=== PATIENT | male | born 1980 | race Caucasian/White ===

== ENCOUNTER 2021-02-18 09:30 | Outpatient (REF) | payer OTHER, SELFPAY ==
[2021-02-18 10:03] LABS: MANUAL DIFF FLAG NO
[2021-02-18 10:06] LABS: Basophils Percent Auto 0.6 % (0-2); Eosinophils Absolute Auto 0.1 X10*3/uL (0.0-0.4); Eosinophils Percent Auto 2.8 % (0-4); Hematocrit 42.1 % (42-52); Hemoglobin 14.2 g/dl (14.0-18.0); Imm Gran Abs Auto 0.01 X10*3/uL (0.00-0.03); Imm Gran Pct Auto 0.2 % (0.0-0.4); Lymphocytes Absolute Auto 1.7 X10*3/uL (1.2-4.9); Lymphocytes Percent Auto 36.2 % (20-40); Mean Corpuscular HGB Conc 33.7 g/dl (31.0-36.0); Mean Corpuscular Hemoglobin 28.9 pg (27.0-33.0); Mean Corpuscular Volume 85.7 fL (80-98); Mean Platelet Volume 10.6 fL (9.4-12.4); Monocytes Absolute Auto 0.4 X10*3/uL (0.1-1.2); Monocytes Percent Auto 7.9 % (2-11); Neutrophils Absolute Auto 2.5 X10*3/uL (2.0-8.3); Neutrophils Percent Auto 52.3 % (45-73); Platelet Count 252 X10*3/uL (160-400); Red Blood Count 4.91 X10*6/uL (4.60-5.80); Red Cell Distribution Width 13.4 % (11.0-16.0); White Blood Count 4.7 X10*3/uL (4.8-10.8)
[2021-02-18 10:28] LABS: Alanine Aminotransferase 47 U/L (0-40); Albumin Level 4.3 g/dL (3.5-5.0); Alkaline Phosphatase 70 U/L (39-117); Anion Gap 11 (12-20); Aspartate Amino Transferase 30 U/L (5-37); Bilirubin Total 0.6 mg/dL (0.0-1.0); Calcium 9.3 mg/dL (8.4-10.2); Carbon Dioxide 27 mmol/L (22-29); Chloride 107 mmol/L (96-108); Cholesterol 191 mg/dL; Estimated Glomerular Filt Rate > 60; Glucose Fasting 106 mg/dL (60-99); HDL Cholesterol 45 mg/dL; LDL Cholesterol Calculated 118 mg/dl; Potassium 4.7 mmol/L (3.3-5.1); Sodium 140 mmol/L (135-145); Total Protein 7.1 g/dL (6.5-8.0); Triglycerides 141 mg/dL
[2021-02-18 10:34] LABS: Blood Urea Nitrogen 15 mg/dL (9-16)
[2021-02-18 10:48] LABS: Thyroid Stimulating Hormone 1.47 uIU/mL (0.32-4.0)
== END 2021-02-18 09:31 | disposition home or self-care (01) ==
LOC: HO.LAB 09:30
PROVIDERS: PCP Internal Medicine; Visit Provider Internal Medicine
DX: Z00.00 Encounter for general adult medical examination without abnormal findings (principal); E03.9 Hypothyroidism, unspecified; E11.9 Type 2 diabetes mellitus without complications
CPT/HCPCS: 36415; 80053; 80061; 84443; 85025

== ENCOUNTER 2022-02-22 09:31 | Outpatient (REF) | payer OTHER, SELFPAY ==
[2022-02-22 09:40] LABS: MANUAL DIFF FLAG NO
[2022-02-22 10:04] LABS: Basophils Absolute Auto 0.1 X10*3/uL (0.0-0.2); Basophils Percent Auto 0.7 % (0-2); Eosinophils Absolute Auto 0.1 X10*3/uL (0.0-0.4); Eosinophils Percent Auto 2.1 % (0-4); Hematocrit 44.8 % (42.0-52.0); Hemoglobin 14.8 g/dl (14.0-18.0); Imm Gran Abs Auto 0.03 X10*3/uL (0.00-0.03); Imm Gran Pct Auto 0.4 % (0.0-0.4); Lymphocytes Percent Auto 29.8 % (20-40); Mean Corpuscular Hemoglobin 28.3 pg (27.0-33.0); Mean Corpuscular Volume 85.7 fL (80.0-98.0); Mean Platelet Volume 10.5 fL (9.4-12.4); Monocytes Absolute Auto 0.5 X10*3/uL (0.1-1.2); Monocytes Percent Auto 7.8 % (2-11); Neutrophils Percent Auto 59.2 % (45-73); Platelet Count 254 X10*3/uL (160-400); Red Blood Count 5.23 X10*6/uL (4.60-5.80); Red Cell Distribution Width 13.3 % (11.0-16.0); White Blood Count 6.7 X10*3/uL (4.8-10.8)
[2022-02-22 10:25] LABS: Alanine Aminotransferase 41 U/L (0-40); Albumin Level 4.4 g/dL (3.5-5.0); Alkaline Phosphatase 60 U/L (39-117); Anion Gap 14 (12-20); Aspartate Amino Transferase 23 U/L (5-37); Bilirubin Total 0.4 mg/dL (0.0-1.0); Blood Urea Nitrogen 17 mg/dL (9-16); Calcium 9.4 mg/dL (8.4-10.2); Carbon Dioxide 27 mmol/L (22-29); Chloride 104 mmol/L (96-108); Cholesterol 226 mg/dL; Estimated Glomerular Filt Rate > 60; Glucose Fasting 96 mg/dL (60-99); HDL Cholesterol 54 mg/dL; LDL Cholesterol Calculated 140 mg/dl; Potassium 4.7 mmol/L (3.3-5.1); Sodium 140 mmol/L (135-145); Total Protein 7.5 g/dL (6.5-8.0); Triglycerides 164 mg/dL
== END 2022-02-22 09:32 | disposition home or self-care (01) ==
LOC: HO.LAB 09:31
PROVIDERS: PCP Internal Medicine; Visit Provider Internal Medicine
DX: Z13.0 Encounter for screening for diseases of the blood and blood-forming organs and certain disorders involving the immune mechanism (principal); E78.5 Hyperlipidemia, unspecified; I10 Essential (primary) hypertension
CPT/HCPCS: 36415; 80053; 80061; 85025

== ENCOUNTER 2023-02-23 08:50 | Outpatient (AMB) | payer OTHER, SELFPAY ==
[2023-02-23 08:51] VITALS: BP 120/72; PULSE 47; O2SAT 98; BMI 38.8
--- NOTE | 2023-02-23 08:51 | A.OFFPC_ITS ---
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 Required: No Physics Technical Officer: Not Required per policy Accompanied by: Self / Same As Patient Allergies No Known Allergies Allergy (Verified 02/23/23 08:52) Medication List - Last Reconciled 02/23/23 by Bonilla Robertson MD atorvastatin 20 mg PO BEDTIME 90 days ketoconazole 200 mg PO DAILY Tobacco use date assessed: 02/18/21 Dental Screening Dental Screen Date: 02/23/23 Did you have a dental visit in the last 12 months?: Yes Did you have a dental problem in the last 6 months where you did not have access to dental care?: No Was dental information given to patient?: Patient has dentist HPI Annual Exam HPI Details hyperlipidemia on rx; doing well PFSH Medical History Hyperlipidemia Obesity Surgical History History of removal of cyst Family History Father Medical history unknown Mother Medical history unknown Social History Housing: House Patient Tobacco Use Status: Never used Tobacco e-Cigarette/Vaping Use: Never Used Second Hand Smoke Exposure: No service: No Current occupational status: employed Cognitive needs: No Hearing needs: No Vision needs: No Questionnaire Thrive Questionnaire Date Thrive assessed: 02/23/23 I am a: Patient What is your living situation today?: I have a steady place to live Within the past 12 months, did the food you bought not last and you didn't have the money to get more?: Never true Within the past 12 months, did you worry whether your food would run out before you got money to buy more?: Never true Do you have trouble paying for medicines?: No Do you have trouble getting transportation to medical appointments?: No Do you have trouble paying your heating and electricity bill?: No Do you have trouble taking care of your child, family member or friend?: No Do you have trouble with day-to-day activities such as bathing, preparing meals, shopping, managing finances, etc.?: No Are you currently unemployed and looking for a job?: No Are you interested in more education?: No Please select the resources that you would like help with: None Currently or been in a relationship where the following occur: no concerns reported AUDIT C Alcohol Use Questionnaire (AUDIT-C) 1. How often do you have a drink containing alcohol?: 2-3 times a week 2. How many drinks containing alcohol do you have on a typical day when you are drinking?: 3 or 4 3. How often do you have six or more drinks on one occasion?: Never Total Score: 4 Score Reviewed/Action Taken: Yes XANDER-7 AMB Questionnaire XANDER-7 Date XANDER - 7 assessed: 02/23/23 Feeling nervous, anxious, or on edge: 0 = Not at all Not being able to stop or control worryin = Not at all Worrying too much about different things: 0 = Not at all Trouble relaxin = Not at all Being so restless that it is hard to sit still: 0 = Not at all Becoming easily annoyed or irritable: 0 = Not at all Feeling afraid as if something awful might happen: 0 = Not at all Total XANDER-7 score (0-4 normal; 5-9 mild; 10-14 moderate; 15-21 severe): 0 Source: Developed by Drs. Anshul Dutton, Heather Jimenez, Uche Hickey and colleagues, with an educational reji from [employer]. Review of Systems Const Denies chills, Denies fatigue, Denies headache(s) and Denies weight loss Eyes Denies change in vision, Denies diplopia and Denies eye pain ENT Denies vertigo, Denies dizziness, Denies headache(s) and Denies nasal discharge Card Denies chest pain, Denies rapid heart rate and Denies dyspnea on exertion Resp Denies chest congestion, Denies cough, Denies pain with cough and Denies dyspnea on exertion GI Denies abdominal pain, Denies hematochezia and Denies change in bowel habits Musc Denies myalgias, Denies arthralgias and Denies joint swelling Skin/Breast Denies lesions and Denies unusual bruising Neuro Denies vertigo, Denies dizziness, Denies headache(s) and Denies focal weakness Endo Denies fatigue Physical exam (Primary Care) Vital Signs: Last Vital Signs Pulse 47 L 02/23/23 08:51 BP 120/72 02/23/23 08:51 Pulse Ox 98 02/23/23 08:51 Oxygen Delivery Method Room Air 02/23/23 08:51 BMI result Body Mass Index 38.8 obesity BMI Assessment/Plan discussion: High BMI High, discussed plan: lifestyle, weight reduction, dietary and physical activity Tobacco/Smoking Status: Tobacco use Status Tobacco use date assessed 02/18/21 02/23/23 08:57 Patient Tobacco Use Status Never used Tobacco 02/23/23 08:57 e-Cigarette/Vaping Use Never Used 02/23/23 08:57 Thrive Assessment: Date of Thrive Assessment Date Thrive assessed 02/23/23 02/23/23 08:57 Currently or been in a relationship where the following occur: no concerns reported Const General: cooperative, healthy appearing and no acute distress Orientation/consciousness: oriented to person, oriented to place and oriented to time HENMT Head: Yes normal to inspection, Yes normocephalic and Yes atraumatic Mouth: Normal oral and palatal mucosa present and tongue normal Throat: Yes posterior oropharynx normal and Yes uvula midline Eyes General: appearance normal, both eyes and all related structures Neck Neck: Yes normal visual inspection, Yes full ROM and Yes no lymphadenopathy Thyroid: Thyroid normal Carotids: normal carotid upstroke Chest Chest palpation & inspection: normal inspection of the chest Resp Effort & Inspection: normal respiratory effort and able to speak in complete sentences Auscultation: clear to auscultation bilaterally Cardio Jugular venous distension: no JVD Palpation: normal PMI Rate: regular rate Rhythm: regular rhythm Heart sounds: S1 normal heart sound present and S2 normal heart sound present GI Inspection: Yes normal to inspection Palpation (GI): Soft to palpation and No hepatosplenomegaly present Auscultation: normal bowel sounds General: Yes no CVA tenderness Back/Spine/Pelvis Back: no CVA tenderness Skin General skin exam: no rashes or lesions noted Neuro General: oriented to person, oriented to place and oriented to time Extrem General: Yes normal to inspection and Yes full ROM Assessment and Plan Assessment & Plan (1) Physical exam: Code(s): Z00.00 - Encounter for general adult medical examination without abnormal findings Plan: do labs (2) Obesity: Code(s): E66.9 - Obesity, unspecified Plan: as above (3) Hyperlipidemia: Code(s): E78.5 - Hyperlipidemia, unspecified Plan: same rx Orders: Orders Complete Blood Count Auto Diff Today D64.9 - Anemia, unspecified Comprehensive Spring. Panel Fast Today N28.9 - Disorder of kidney and ureter, unspecified Lipid Panel Today E78.5 - Hyperlipidemia, unspecified Referrals Gastroenterology Referral Z12.11 - Encounter for screening for malignant neoplasm of colon Medications: Refilled atorvastatin 20 mg PO BEDTIME 90 tabs 8RF 90 days Coding Level of Care Code Est Pt Prev Care 40-64y(80596) Diagnoses Physical exam Z00.00 Obesity E66.9 Hyperlipidemia E78.5
== END 2023-02-23 09:16 | disposition home or self-care (01) ==
PROVIDERS: PCP Internal Medicine; Visit Provider Internal Medicine
DX: Z00.00 Encounter for general adult medical examination without abnormal findings (principal); E66.9 Obesity, unspecified; Z68.38 Body mass index [BMI] 38.0-38.9, adult; E78.5 Hyperlipidemia, unspecified
CPT/HCPCS: 99396

== ENCOUNTER 2023-02-23 09:25 | Outpatient (REF) | payer OTHER, SELFPAY ==
[2023-02-23 09:38] LABS: MANUAL DIFF FLAG NO
[2023-02-23 09:47] LABS: Basophils Percent Auto 0.7 % (0-2); Eosinophils Absolute Auto 0.1 X10*3/uL (0.0-0.4); Hematocrit 41.7 % (42.0-52.0); Hemoglobin 13.9 g/dl (14.0-18.0); Imm Gran Abs Auto 0.01 X10*3/uL (0.00-0.03); Imm Gran Pct Auto 0.2 % (0.0-0.4); Lymphocytes Absolute Auto 2.2 X10*3/uL (1.2-4.9); Mean Corpuscular HGB Conc 33.3 g/dl (31.0-36.0); Mean Corpuscular Volume 87.1 fL (80.0-98.0); Mean Platelet Volume 10.1 fL (9.4-12.4); Monocytes Absolute Auto 0.5 X10*3/uL (0.1-1.2); Monocytes Percent Auto 8.8 % (2-11); Neutrophils Absolute Auto 2.7 x10*3/uL (2.0-8.3); Neutrophils Percent Auto 49.3 % (45-73); Platelet Count 231 X10*3/uL (160-400); Red Blood Count 4.79 X10*6/uL (4.60-5.80); Red Cell Distribution Width 13.2 % (11.0-16.0); White Blood Count 5.5 X10*3/uL (4.8-10.8)
[2023-02-23 10:27] LABS: Alanine Aminotransferase 32 U/L (0-40); Albumin Level 4.2 g/dL (3.5-5.0); Alkaline Phosphatase 56 U/L (39-117); Anion Gap 12 (12-20); Aspartate Amino Transferase 29 U/L (5-37); Bilirubin Total 0.5 mg/dL (0.0-1.0); Blood Urea Nitrogen 21 mg/dL (9-16); Calcium 9.3 mg/dL (8.4-10.2); Carbon Dioxide 26 mmol/L (22-29); Chloride 105 mmol/L (96-108); Cholesterol 211 mg/dL (<200); Estimated Glomerular Filt Rate > 60; Glucose Fasting 98 mg/dL (60-99); HDL Cholesterol 49 mg/dL (>40); LDL Cholesterol Calculated 141 mg/dL (<100); Potassium 4.3 mmol/L (3.3-5.1); Sodium 139 mmol/L (135-145); Total Protein 7.3 g/dL (6.5-8.0); Triglycerides 107 mg/dL (<150)
== END 2023-02-23 09:26 | disposition home or self-care (01) ==
LOC: HO.LAB 09:25
PROVIDERS: PCP Internal Medicine; Visit Provider Internal Medicine
DX: D64.9 Anemia, unspecified (principal); N28.9 Disorder of kidney and ureter, unspecified; E78.5 Hyperlipidemia, unspecified
CPT/HCPCS: 36415; 80053; 80061; 85025

== ENCOUNTER 2023-11-06 10:00 | Day surgery (SDC) | payer OTHER, SELFPAY ==
[2023-11-02 11:39] VITALS: BMI 39.8
--- NOTE | 2023-11-03 10:31 | HO.ANESPROP2 ---
Documented by User: Erin Lombardo NP 11/03/23 10:32 HPI - Anesthesia Eval Consult details Narrative: 43yo M for Upper Endoscopy and Colonoscopy PMFSH Active Problems Active Problems: All Active Problems Physical exam (Acute) Hyperlipidemia (Acute) Obesity (Acute) Past Medical History Medical History Hyperlipidemia Obesity Family History Family History Father Medical history unknown Mother Medical history unknown Surgical History Surgical History (Updated 11/02/23 @ 11:37 by Neeta Maza, BRYNN) History of vasectomy History of removal of cyst Social History Social History (Updated 11/02/23 @ 11:38 by Neeta Maza, BRYNN) Housing: House Patient Tobacco Use Status: Never used Tobacco e-Cigarette/Vaping Use: Never Used Second Hand Smoke Exposure: No Use of substances other than those prescribed or required for medical reasons: No Are you DNR?: No Advance Directives: No Advance Directives Information Provided: Yes service: No Current occupational status: employed Current occupation: [employer] Cognitive needs: No Hearing needs: No Vision needs: No Meds Allergies Allergy/AdvReac Type Severity Reaction Status Date / Time No Known Allergies Allergy Verified 02/23/23 08:52 Exam Height,Weight and Vital Signs: Height 5 ft 10 in Weight 125.872 kg Assessment and Plan Assessment Anesthesia Assessment: Chart Reviewed Documented by User: Ranulfo Dey MD 11/06/23 12:39 PMFSH Past Medical History Medical History Hyperlipidemia Obesity Family History Family History Father Medical history unknown Mother Medical history unknown Family history of problems with anesthesia: No Surgical History Surgical History (Updated 11/02/23 @ 11:37 by Neeta Maza RN) History of vasectomy History of removal of cyst History of Problems with Anesthesia: No Social History Social History (Updated 11/02/23 @ 11:38 by Neeta Maza RN) Housing: House Patient Tobacco Use Status: Never used Tobacco e-Cigarette/Vaping Use: Never Used Second Hand Smoke Exposure: No Use of substances other than those prescribed or required for medical reasons: No Are you DNR?: No Advance Directives: No Advance Directives Information Provided: Yes service: No Current occupational status: employed Current occupation: [employer] Cognitive needs: No Hearing needs: No Vision needs: No Meds Allergies Allergy/AdvReac Type Severity Reaction Status Date / Time No Known Allergies Allergy Verified 02/23/23 08:52 Exam Airway Mallampati Class: II TM Dist: <=3cm Neck ROM: Full Loose/Missing/Broken Teeth: No Heart: ok Lungs: ok Assessment and Plan Assessment Anesthesia Assessment: Anesthesia Plan Discussed Final Anesthetic Review Family History of Problems with Anesthesia: No History of Problems with Anesthesia: No NPO: Yes ASA Class: III Final Preanesthetic Review: No Changes in Pt Med Stat, Meds/Allgs Chart Reviewed, Consent Obtained/Reviewed and Anes Risks/Benef Reviewed Patient Risk: Intermediate Procedure Risk: Intermediate Anesthetic Plan Anesthetic Plan: Agree w/ Assess. and Plan and TIVA Disposition: Standard PACU
[2023-11-06 10:18] VITALS: BP 142/80; PULSE 70; RESP 16; TEMP 36.4; O2SAT 98; BMI 39.9
[2023-11-06] MEDS: Lactated Ringers 1,000 ML 100 ML IVCONT (10:28)
[2023-11-06 13:07] VITALS: BP 143/86; PULSE 86; RESP 18; TEMP 37; O2SAT 94
--- NOTE | 2023-11-06 13:11 | P.BOP_ITS ---
Brief Operative Note Date of Service: 11/06/23 Pre-op diagnosis: GERD, Screening Post-op diagnosis: other (Hiatal hernia, Rectal polyp) Procedure: EGD with biopsies, Colonoscopy to the cecum and TI with bx/removal of polyp Surgeon: Anshul Draper MD Anesthesia: MAC Was an Impregnating Machine Operator used for this Procedure?: No Estimated blood loss (mL): 2.0 Pathology: other (A. EG Junction at 39cm B. Rectal polyp) Condition: stable Disposition: PACU
[2023-11-06 13:22] VITALS: BP 140/79; PULSE 64; RESP 18; TEMP 37; O2SAT 96
--- NOTE | 2023-11-06 13:56 | OP_ITS ---
DATE OF SERVICE: 11/06/2023 SURGEON: Anshul Draper MD INDICATIONS: The patient presents for evaluation of gastroesophageal reflux and colorectal cancer screening. Full consent has been obtained from him for this, including risks of bleeding and perforation. PREOPERATIVE DIAGNOSIS: POSTOPERATIVE DIAGNOSIS: PROCEDURE PERFORMED: Esophagogastroduodenoscopy with biopsies, and colonoscopy to cecum and terminal ileum with biopsy and removal of polyp. ESTIMATED BLOOD LOSS: COMPLICATIONS: ANESTHESIA: Monitored anesthesia care. ASSISTANTS: SPECIMENS: PREOPERATIVE DIAGNOSES: Gastroesophageal reflux and colorectal cancer screening. POSTOPERATIVE DIAGNOSES: Gastroesophageal reflux, colorectal cancer screening, small hiatal hernia, small rectal polyp, mild sigmoid diverticulosis, small internal hemorrhoids. DESCRIPTION OF PROCEDURE: The patient was placed in the left lateral decubitus position. The Olympus video gastroscope was passed in the posterior oropharynx and upper esophagus under direct vision. The scope was passed slowly to the distal esophagus. The gastroesophageal junction appeared at 39 cm. There was some very minimal irregularity, but no evidence of esophagitis nor any definitive evidence of [place] mucosa. There was a small hiatal hernia. The scope was advanced to pylorus and the duodenum was cannulated to the descending portion. The duodenum including the bulb appeared normal without mass or ulceration. The scope was withdrawn back in the stomach. The gastric antrum and body appeared normal with good peristalsis. The scope was retroflexed visualizing the proximal stomach carefully, which appeared normal, without any sign of mass or ulceration. The scope was straightened and withdrawn back to the esophagus. The biopsies were obtained at the EG junction at 39 cm. Proximal to that, the esophageal mucosa appeared normal. The scope was withdrawn from the patient. He was turned around for the colonoscopy. The digital rectal exam revealed no abnormalities. The Olympus video pediatric colonoscope was then entered into the rectum and advanced easily to the cecum. Once in the cecum, I did identify normal-appearing cecal pouch with appendiceal orifice and a normal-appearing ileocecal valve. The terminal ileum was cannulated and appeared normal. The scope withdrawn back in the colon. The entire cecum and ileocecal valve appeared normal. The scope was then slowly withdrawn assessing all mucosal surfaces carefully. Preparation was excellent. I did not visualize any sign of colitis nor angiodysplasia. There was a mild amount of sigmoid diverticulosis. The only polyp I visualized was a small, approximately 3 or 4 mm probable hyperplastic polyp in the rectum, which was biopsied and completely removed with the cold biopsy forceps. In the rectum, scope was retroflexed, visualizing small internal hemorrhoids, but no other pathology. The rectal mucosa appeared normal. The scope was straightened and withdrawn from the patient. He tolerated the procedures well and was returned to the recovery area in stable condition. IMPRESSION: 1. Small hiatal hernia, minimal changes of reflux. 2. Small rectal polyp. 3. Diverticulosis. 4. Internal hemorrhoids. PLAN: The results of the biopsy will be checked. If the rectal polyp is only hyperplastic, I would recommend a followup colonoscopy in 10 years. If it happens to be adenomatous, I would then recommend a followup colonoscopy in 5 years. At this point, he is not taking any medication on a regular basis for reflux and given today's basically negative exam, I do not think we need any medication for that unless his symptoms were to increase. At this point, he will see me on a p.r.n. basis. MD FAISAL Lainez/YAIMA / [id number]
== END 2023-11-06 13:45 | disposition home or self-care (01) ==
PROVIDERS: PCP Internal Medicine; Visit Provider Internal Medicine
PROC: (CPT 45380; principal; 2023-11-06 11:40)
DX: Z12.11 Encounter for screening for malignant neoplasm of colon (principal); K62.1 Rectal polyp; K57.30 Diverticulosis of large intestine without perforation or abscess without bleeding; K64.8 Other hemorrhoids; K21.9 Gastro-esophageal reflux disease without esophagitis; K44.9 Diaphragmatic hernia without obstruction or gangrene
CPT/HCPCS: 45380; 43239; 88305; 88313; J2704; J3010

== ENCOUNTER 2024-02-27 08:46 | Outpatient (AMB) | payer OTHER, SELFPAY ==
[2024-02-27 08:48] VITALS: BP 140/82; PULSE 64; O2SAT 94; BMI 38.4
--- NOTE | 2024-02-27 08:48 | A.OFFPC_ITS ---
Vital Signs 02/27/24 08:48 Height 5 ft 10 in Weight 268 lb BMI 38.4 BP 140/82 H Blood Pressure Location Lt brachial Position Sitting Pulse 64 Pulse Source Pulse Oximeter Pulse Oximetry (%) 94 Oxygen Delivery Method Room Air Intake Visit Reasons: Annual Exam Utilization Review Coordinator Required: No Accompanied by: Self / Same As Patient Allergies No Known Allergies Allergy (Verified 02/27/24 08:49) Medication List - Last Reconciled 02/27/24 by Bonilla Robertson MD atorvastatin 20 mg PO BEDTIME 90 days ketoconazole 200 mg PO DAILY Tobacco use date assessed: 02/27/24 Dental Screening Dental Screen Date: 02/27/24 Did you have a dental visit in the last 12 months?: Yes Did you have a dental problem in the last 6 months where you did not have access to dental care?: No Was dental information given to patient?: Patient has dentist HPI Annual Exam HPI Details hyperlipidemia on rx; doing well PFSH Medical History Hyperlipidemia Obesity Surgical History (Updated 11/02/23 @ 11:37 by Neeta Maza RN) History of vasectomy History of removal of cyst Family History Father Medical history unknown Mother Medical history unknown Social History (Updated 11/02/23 @ 11:38 by Neeta Maza RN) Housing: House Patient Tobacco Use Status: Never used Tobacco Tobacco use type: Cigarette e-Cigarette/Vaping Use: Never Used Second Hand Smoke Exposure: No service: No Current occupational status: employed Current occupation: [employer] Cognitive needs: No Hearing needs: No Vision needs: No Questionnaire PHQ-9 Over the last 2 weeks, how often have you been bothered by any of the following problems? 1. Little interest or pleasure in doing things: not at all 2. Feeling down, depressed, or hopeless: not at all 3. Trouble falling or staying asleep, or sleeping too much: not at all 4. Feeling tired or having little energy: not at all 5. Poor appetite or overeating: not at all 6. Feeling bad about yourself - or that you are a failure or have let yourself or your family down: not at all 7. Trouble concentrating on things, such as reading the newspaper or watching television: not at all 8. Moving or speaking so slowly that other people could have noticed. Or the opposite - being so fidgety or restless that you have been moving around a lot more than usual: not at all 9. Thoughts that you would be better off or of hurting yourself in some way: not at all Total score: 0 Depression Screening Interpretation: Negative Depression Screening Done: Yes 00112 - PHQ-9 Billing: Yes Source: Developed by Drs. Anshul Dutton, Heather Jimenez, Uche Hickey and colleagues, with an educational reji from [employer]. Thrive Questionnaire Date Thrive assessed: 02/20/24 I am a: Patient What is your living situation today?: I choose not to answer this question Within the past 12 months, did the food you bought not last and you didn't have the money to get more?: I choose not to answer this question Within the past 12 months, did you worry whether your food would run out before you got money to buy more?: I choose not to answer this question Do you have trouble paying for medicines?: I choose not to answer this question Do you have trouble getting transportation to medical appointments?: No Do you have trouble paying your heating and electricity bill?: I choose not to answer this question Do you have trouble taking care of your child, family member or friend?: I choose not to answer this question Do you have trouble with day-to-day activities such as bathing, preparing meals, shopping, managing finances, etc.?: I choose not to answer this question Are you currently unemployed and looking for a job?: I choose not to answer this question Are you interested in more education?: I choose not to answer this question Please select the resources that you would like help with: None Currently or been in a relationship where the following occur: I choose not to answer THRIVE Score: 0 AUDIT C Alcohol Use Questionnaire (AUDIT-C) 1. How often do you have a drink containing alcohol?: Never Total Score: 0 XANDER-7 AMB Questionnaire XANDER-7 Date XANDER - 7 assessed: 02/27/24 Feeling nervous, anxious, or on edge: 0 = Not at all Not being able to stop or control worryin = Not at all Worrying too much about different things: 0 = Not at all Trouble relaxin = Not at all Being so restless that it is hard to sit still: 0 = Not at all Becoming easily annoyed or irritable: 0 = Not at all Feeling afraid as if something awful might happen: 0 = Not at all Total XANDER-7 score (0-4 normal; 5-9 mild; 10-14 moderate; 15-21 severe): 0 Source: Developed by Drs. Anshul Dutton, Heather Jimenez, Uche Hickey and colleagues, with an educational reji from [employer]. XANDER-7 Assessment Billing XANDER-7 Assessment Tool: XANDER-7 Assessment 19435 Review of Systems Const Denies chills, Denies fatigue, Denies headache(s) and Denies weight loss Eyes Denies change in vision, Denies diplopia and Denies eye pain ENT Denies vertigo, Denies dizziness, Denies headache(s) and Denies nasal discharge Card Denies chest pain, Denies rapid heart rate and Denies dyspnea on exertion Resp Denies chest congestion, Denies cough, Denies pain with cough and Denies dyspnea on exertion GI Denies abdominal pain, Denies hematochezia and Denies change in bowel habits Musc Denies myalgias, Denies arthralgias and Denies joint swelling Skin/Breast Denies lesions and Denies unusual bruising Neuro Denies vertigo, Denies dizziness, Denies headache(s) and Denies focal weakness Endo Denies fatigue Physical exam (Primary Care) Vital Signs: Last Vital Signs Pulse 64 02/27/24 08:48 BP 140/82 H 02/27/24 08:48 Pulse Ox 94 02/27/24 08:48 Oxygen Delivery Method Room Air 02/27/24 08:48 BMI result Body Mass Index 38.4 Tobacco/Smoking Status: Tobacco use Status Tobacco use date assessed 02/27/24 02/27/24 08:54 Patient Tobacco Use Status Never used Tobacco 02/27/24 08:54 Tobacco use type Cigarette 02/27/24 08:54 e-Cigarette/Vaping Use Never Used 02/27/24 08:54 PHQ-9: PHQ-9 Score PHQ-9: Total score 0 02/27/24 08:54 Depression Screening Interpretation: Negative Thrive Assessment: Date of Thrive Assessment Date Thrive assessed 02/20/24 02/27/24 08:54 Currently or been in a relationship where the following occur: I choose not to answer Const General: cooperative, healthy appearing and no acute distress Orientation/consciousness: oriented to person, oriented to place and oriented to time HENMT Head: Yes normal to inspection, Yes normocephalic and Yes atraumatic Mouth: Normal oral and palatal mucosa present and tongue normal Throat: Yes posterior oropharynx normal and Yes uvula midline Eyes General: appearance normal, both eyes and all related structures Neck Neck: Yes normal visual inspection, Yes full ROM and Yes no lymphadenopathy Thyroid: Thyroid normal Carotids: normal carotid upstroke Chest Chest palpation & inspection: normal inspection of the chest Resp Effort & Inspection: normal respiratory effort and able to speak in complete sentences Auscultation: clear to auscultation bilaterally Cardio Jugular venous distension: no JVD Palpation: normal PMI Rate: regular rate Rhythm: regular rhythm Heart sounds: S1 normal heart sound present and S2 normal heart sound present GI Inspection: Yes normal to inspection Palpation (GI): Soft to palpation and No hepatosplenomegaly present Auscultation: normal bowel sounds General: Yes no CVA tenderness Back/Spine/Pelvis Back: no CVA tenderness Skin General skin exam: no rashes or lesions noted Neuro General: oriented to person, oriented to place and oriented to time Extrem General: Yes normal to inspection and Yes full ROM Assessment and Plan Assessment & Plan (1) Physical exam: Code(s): Z00.00 - Encounter for general adult medical examination without abnormal findings Plan: stable; do labs (2) Hyperlipidemia: Code(s): E78.5 - Hyperlipidemia, unspecified Plan: stable; same rx Orders: Orders Lipid Panel Today Z13.220 - Encounter for screening for lipoid disorders Complete Blood Count Auto Diff Today Z13.0 - Encounter for screening for diseases of the blood and blood-forming organs and certain disorders involving the immune mechanism Prostate Specific Antigen Scr Today Z00.00 - Encounter for general adult medical examination without abnormal findings Thyroid Stimulating Hormone Today Z13.29 - Encounter for screening for other suspected endocrine disorder Comprehensive [place]. Panel Fast Today Z13.9 - Encounter for screening, unspecified Medications: Refilled ketoconazole 200 mg PO DAILY 60 tabs 2RF Coding Level of Care Code Est Pt Prev Care 40-64y(47892) Diagnoses Physical exam Z00.00 Hyperlipidemia E78.5 Additional Codes XANDER-7 Assessment Billing - XANDER-7 Assessment Tool: XNADER-7 Assessment 45074 ([id number])
== END 2024-02-27 09:11 | disposition home or self-care (01) ==
PROVIDERS: PCP Internal Medicine; Visit Provider Internal Medicine
DX: Z00.00 Encounter for general adult medical examination without abnormal findings (principal); E78.5 Hyperlipidemia, unspecified
CPT/HCPCS: 99396

== ENCOUNTER 2024-05-08 10:05 | Outpatient (REF) | payer OTHER, SELFPAY ==
[2024-05-08 10:23] LABS: MANUAL DIFF FLAG NO
[2024-05-08 10:26] LABS: Basophils Percent Auto 0.5 % (0-2); Eosinophils Absolute Auto 0.1 X10*3/uL (0.0-0.4); Eosinophils Percent Auto 2.1 % (0-4); Hematocrit 43.5 % (42.0-52.0); Hemoglobin 14.8 g/dl (14.0-18.0); Imm Gran Abs Auto 0.01 X10*3/uL (0.00-0.03); Imm Gran Pct Auto 0.2 % (0.0-0.4); Lymphocytes Absolute Auto 1.9 X10*3/uL (1.2-4.9); Mean Corpuscular Hemoglobin 29.4 pg (27.0-33.0); Mean Corpuscular Volume 86.5 fL (80.0-98.0); Monocytes Absolute Auto 0.7 X10*3/uL (0.1-1.2); Monocytes Percent Auto 11.8 % (2-11); Neutrophils Absolute Auto 3.5 x10*3/uL (2.0-8.3); Neutrophils Percent Auto 55.4 % (45-73); Platelet Count 243 X10*3/uL (160-400); Red Blood Count 5.03 X10*6/uL (4.60-5.80); Red Cell Distribution Width 13.4 % (11.0-16.0); White Blood Count 6.2 X10*3/uL (4.8-10.8)
[2024-05-08 11:05] LABS: Alanine Aminotransferase 42 U/L (0-40); Albumin Level 4.3 g/dL (3.5-5.0); Alkaline Phosphatase 64 U/L (39-117); Anion Gap 9 (12-20); Aspartate Amino Transferase 29 U/L (5-37); Bilirubin Total 0.6 mg/dL (0.0-1.0); Blood Urea Nitrogen 18 mg/dL (9-16); Calcium 9.3 mg/dL (8.4-10.2); Carbon Dioxide 28 mmol/L (22-29); Chloride 108 mmol/L (96-108); Cholesterol 196 mg/dL (<200); Estimated Glomerular Filt Rate > 60; Glucose Fasting 99 mg/dL (60-99); HDL Cholesterol 41 mg/dL (>40); LDL Cholesterol Calculated 124 mg/dL (<100); Potassium 4.2 mmol/L (3.3-5.1); Sodium 141 mmol/L (135-145); Total Protein 7.3 g/dL (6.5-8.0); Triglycerides 156 mg/dL (<150)
[2024-05-08 11:20] LABS: Prostate Specific Antigen Scr 0.35 ng/mL (<0.05-4.0)
== END 2024-05-08 10:06 | disposition home or self-care (01) ==
LOC: HO.LAB 10:05
PROVIDERS: PCP Internal Medicine; Visit Provider Internal Medicine
DX: Z00.00 Encounter for general adult medical examination without abnormal findings (principal); Z13.9 Encounter for screening, unspecified; Z13.220 Encounter for screening for lipoid disorders; Z13.0 Encounter for screening for diseases of the blood and blood-forming organs and certain disorders involving the immune mechanism; Z13.29 Encounter for screening for other suspected endocrine disorder; Z12.5 Encounter for screening for malignant neoplasm of prostate
CPT/HCPCS: 36415; 80053; 80061; 84153; 84443; 85025

== ENCOUNTER 2024-07-29 13:28 | Outpatient (REF) | payer OTHER, SELFPAY ==
--- NOTE | ~2024-07-29 | XR_ITS ---
EXAMINATION: XR ELBOW, LEFT CLINICAL INFORMATION: M25.522 - Pain in left elbow COMPARISON: None available. TECHNIQUE: AP, lateral, and oblique views of the left elbow. FINDINGS: The bones and soft tissues are normal. No fracture or joint effusion. Alignment is anatomic. Joint spaces are maintained. XR/XR elbow LT min 3V IMPRESSION: Normal left elbow. Electronically signed by: Yo Florez MD 07/29/2024 04:02 PM LACEY LEW
--- OUTSIDE RECORDS SUMMARY | 2024-07-29 14:34 | XMS_ITS ---
Author Organization [facility] Address [address] [place] [address] Care Team Providers Care Automatic Typewriter Inspector Name Role Phone Bonilla Robertson MD Primary Care Provider Anshul Latham [phone] REASON FOR VISIT gerd,screening PROBLEMS Problem Type ICD Code Onset Dates Problem Status W/U Status Risk SNOMED Code Notes Problem Diverticulosis of large intestine without perforation or abscess without bleeding (K57.30) Active confirmed Diverticul ar disease of colon (238903497) Problem Esophageal reflux disease (K21.9) Active confirmed Gastroesopha geal reflux disease (815804281) Encounters Encounter Location Date Provider Diagnosis [facility] Outpatient [address] [place] [address] [id number] 11/06/2023 Anshul Draper Encounter for scre ening colonoscopy Z12.11 ; Rectal polyp K62.1 ; Diverticulosis of large intestine without perforation or abscess without bleeding K57.30 ; Other hemorrhoids K64.8 ; Other specified disease of esophagus K22.89 ; Hiatal hernia K44.9 and Esophageal reflux disease K21.9 ASSESSMENTS Encounter Date Diagnosis Assessment Notes Treatment Notes Treatment Clinical Notes 11/06/2023 Encounter for screening colonoscopy (ICD-10 - Z12.11) 11/06/2023 Rectal polyp (ICD-10 - K62.1) 11/06/2023 Diverticulosis of large intestine without perforation or abscess without bleeding (ICD-10 - K57.30) 11/06/2023 Other hemorrhoids (ICD-10 - K64.8) 11/06/2023 Other specified disease of esophagus (ICD-10 - K22.89) 11/06/2023 Hiatal hernia (ICD-1 0 - K44.9) 11/06/2023 Esophageal reflux disease (ICD-10 - K21.9) PLAN OF TREATMENT No Information
--- OUTSIDE RECORDS SUMMARY | 2024-07-29 14:35 | XMS_ITS | Patient Health Record ---
Author Organization [facility] Address [address] [place] [address] Care Team Providers Care Employee Health Nurse Name Role Phone Bonilla Robertson MD Primary Care Provider Anshul Latham Unavailable [phone] ALLERGIES No Known Allergies RESULTS Component Value Reference Range Notes Pathology Reviewed date:11/14/2023 08:49:29 AM Interpretation: Performing Lab:[facility], [address] [place] [phone] Notes/Report: REASON FOR REFERRAL No Information MEDICATIONS Medication SIG (Take, Route, Frequency, Duration) Notes Start Date End Date Status Atorvastatin Calcium 20 MG TAKE 1 TABLET BY MOUTH EVERYDAY AT BEDTIME Oral for 90 Active IMMUNIZATIONS Vaccine Route Administration Date Status Comme nts Influenza Unknown 08/16/2023 Refused SOCIAL HISTORY Tobacco Use: Social History Observation Description Date Details (start date - stop date) Never Smoker NA - NA Sex Assigned At : Social History Observation Description Sex Assigned At Unknown Tobacco Use/Smoking Question Answer Notes Patient is a nonsmoker Alcohol Screen Question Answer Notes Did you have a drink contain ing alcohol in the past year? Yes How often did you have a dri nk containing alcohol in the past year? 2 to 4 times a month (2 points) How many drinks did you have on a typical day when you were drinking in the past year? 3 or 4 drinks (1 point) How often did you have 6 or more drinks on one occasion in the past year? Never (0 point) Points 3 Interpretation Negative PROBLEMS Problem Type ICD Code Onset Dates Problem Status W/U Status Risk SNOMED Code Notes Problem GERD (gastroesophageal reflux disease) (K21.9) Active confirmed Gastroesophagea l reflux disease (214628106) Problem Colon cancer screening (Z12.11) Active confirmed Colon cancer screening (516848125) Problem Diverticulosis of large intestine without perforation or abscess without bleeding (K57.30) Active confirmed Diverticul ar disease of colon (307710410) Problem Esophageal reflux disease (K21.9) Active confirmed Gastroesopha geal reflux disease (332839282) VITAL SIGNS Temperature 97.3 degrees Fahrenheit 08/16/2023 Blood pressure diastolic 00 mm Hg 08/16/2023 Height 5 ft 10 in in 08/16/2023 Blood pressure systolic 000 mm Hg 08/16/2023 Weight 277 lb 8 oz lbs 08/16/2023 BMI 39.81 kg/m2 08/16/2023 Encounters Encounter Location Date Provider Diagnosis [facility] Outpatient [address] [place] [address] [id number] 11/06/2023 Anshul Draper Encounter for screen ing colonoscopy Z12.11 ; Rectal polyp K62.1 ; Diverticulosis of large intestine without perforation or abscess without bleeding K57.30 ; Other hemorrhoids K64.8 ; Other specified disease of esophagus K22.89 ; Hiatal hernia K44.9 and Esophageal reflux disease K21.9 [facility] [address] [place] [address] 08/16/2023 Anshul Draper GERD (gastroesophage al reflux disease) K21.9 and Colon cancer screening Z12.11 ASSESSMENTS Encounter Date Diagnosis Assessment Notes Treatment Notes Treatment Clinical Notes 11/06/2023 Encounter for screening colonoscopy (ICD-10 - Z12.11) 11/06/2023 Rectal polyp (ICD-10 - K62.1) 08/16/2023 Colon cancer screening (ICD-10 - Z12.11) 08/16/2023 GERD (gastroesophageal reflux disease) (ICD-10 - K21.9) 11/06/2023 Diverticulosis of large intestine without perforation or abscess without bleeding (ICD-10 - K57.30) 11/06/2023 Other hemorrhoids (ICD-10 - K64.8) 11/06/2023 Other specified disease of esophagus (ICD-10 - K22.89) 11/06/2023 Hiatal hernia (ICD-1 0 - K44.9) 11/06/2023 Esophageal reflux disease (ICD-10 - K21.9) PLAN OF TREATMENT Future Test Test Name Order Date UPPER GI ENDOSCOPY 08/16/2023 COLONOSCOPY 08/16/2023 Insurance Providers Payer Name Payer Address Payer Phone Subscriber Number Group Number Insured Name Patient Relationship to Insured Coverage Start Date Coverage End Date [facility] [address] [facility] [place]QUEZ [phone] [id number] STEVE KING Self - patient is the insured MEDICAL (GENERAL) HISTORY Medical History History ICD Code Hyperlipidemia Denies [place],DM,CVA,Lung disease,renal dise ase Surgical History Surgery Date(Month/Year) Pilonidal cyst Vasectomy
--- OUTSIDE RECORDS SUMMARY | 2024-07-29 14:35 | XMS_ITS ---
Author Organization [facility] Address [address] [place] [address] Care Team Providers Care Associate Engineer Name Role Phone Bonilla Robertson MD Primary Care Provider Anshul Latham Unavailable [phone] ALLERGIES No Known Allergies REASON FOR VISIT Patient presents today for a screening colonoscopy MEDICATIONS Medication SIG (Take, Route, Frequency, Duration) [...] Status Risk SNOMED Code Notes Problem GERD (gastroesopha geal reflux disease) (K21.9) Active confirmed Gastroesophagea l reflux disease (281288456) Problem Colon cancer screening (Z12.11) Active confirmed Colon cancer screening (984703144) VITAL SIGNS BMI 39.81 kg/m2 08/16/2023 Blood pressure systolic 000 mm Hg 02/28/20 24 Blood pressure diastolic 00 mm Hg 024 Height 5 ft 10 in in 08/16/2023 Temperature 97.3 degrees Fahrenheit 08/16/19 Weight 277 lb 8 oz lbs 08/16/2023 Encounters Encounter Location Date Provider Diagnosis [facility] [address] [place] [address] 08/16/2023 Anshul Draper GERD (gastroesophageal reflux disease) K21.9 and Colon cancer screening Z12.11 ASSESSMENTS Encounter Date Diagnosis Assessment Notes Treatment Notes Treatment Clinical Notes 08/16/2023 GERD (gastroesophageal reflux disease) (ICD-10 - K21.9) 08/16/2023 Colon cancer screening (ICD-10 - Z12.11) PLAN OF TREATMENT Future Test Test Name Order Date UPPER GI ENDOSCOPY 08/16/2023 COLONOSCOPY 08/16/2023 Next Appt Details Follow Up: prn, Reason: Progress Notes * Examination Category Sub-Category Detail Notes General Examination GENERAL APPEARANCE: pleasant , well nourished, well developed, in no acute distress HEAD: EYES: sclera non-icteric EARS: NOSE: THROAT: NECK/THYROID: no cervical lymphade nopathy, neck supple HEART: S1, S2 normal CHEST: LUNGS: clear to auscultatio n bilaterally ABDOMEN: normal bowel sounds, no guarding or rigidity, no guarding or rigidity, no masses palpable, soft, nontender, nondistended NEUROLOGIC: alert and oriented SKIN: nonjaundiced, no spi gaby angiomata EXTREMITIES: no edema PERIPHERAL PULSES: BACK: BREASTS: MUSCULOSKELETAL: MALE GENITOURINARY: LYMPH NODES: RECTAL EXAM: FEMALE GENITOURINARY: ORAL CAVITY: mucosa moist
== END 2024-07-29 13:29 | disposition home or self-care (01) ==
LOC: HO.HOSX 13:28
DX: M77.12 Lateral epicondylitis, left elbow (principal)
CPT/HCPCS: 20550; 73080; J1100; J2003

== ENCOUNTER 2024-07-29 14:12 | Outpatient (AMB) | payer OTHER, SELFPAY ==
[2024-07-29 14:55] VITALS: BMI 38.4
--- NOTE | 2024-07-29 14:55 | A.OFFVIS_ITS ---
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 Patient reports pain depends on movement. He has had episodes where he has lost full strength due to pain. Denies numbness or tingling. He has tried PT and cortisone injections without relief, last cortisone injection 3 years ago. Denies prior injuries or surgeries to the left elbow. Allergies No Known Allergies Allergy (Verified 07/29/24 14:58) PFSH Medical History (Updated 07/29/24 @ 16:47 by BETHANY Casillas) Hyperlipidemia Obesity Surgical History (Updated 11/02/23 @ 11:37 by Neeta Maza RN) History of vasectomy History of removal of cyst Family History Father Medical history unknown Mother Medical history unknown Social History (Updated 07/29/24 @ 14:58 by MYLES Cummings) Housing: House Patient Tobacco Use Status: Never used Tobacco Tobacco use type: Cigarette e-Cigarette/Vaping Use: Never Used Second Hand Smoke Exposure: No service: No Current occupational status: employed Current occupation: [employer], rt handed Cognitive needs: No Hearing needs: No Vision needs: No Review of Systems Const All systems reviewed & are unremarkable except as noted in HPI and below Physical Exam Vital Signs: BMI result Body Mass Index 38.4 Extrem Other: Patient's left elbow normal to inspection No erythema, ecchymosis, edema noted No lacerations, abrasions, open areas No evidence of infection Patient reports [id number] tenderness to palpation of the lateral epicondyle of the left elbow No tenderness to palpation of the medial epicondyle, olecranon process, radial head, or elsewhere in the left elbow Patient is able to flex and extend the left elbow fully and without difficulty Patient is able to pronate and supinate the left wrist fully and without difficulty Positive Cozen's test in the left Negative reverse Cozen's test in the left Distal sensation intact Capillary refill brisk Office Procedures Joint Inj/Aspir; Non-Pain Clin Elbows, Wrist, Hands, Details: Left lateral epicondylitis injection Elbow Injection Medium joint : Left Elbow Coding Procedure code (CPT) selection complete Assessment & Plan Assessment & Plan (1) Lateral epicondylitis of left elbow: Code(s): M77.12 - Lateral epicondylitis, left elbow Category: Medical Plan 1. Lateral Epicondylitis of left elbow Educated the patient about this condition Educated the patient about the treatment options available The risks and benefits of a steroid injection including but not limited to risk of damage to blood vessels, nerves, tendons, infection, skin bleaching, failure to improve symptoms, increased pain, and possible need for further injections or other intervention were discussed with the patient and the patient wishes to proceed with the steroid injection. Once consent was obtained, I sterilely prepped the area over the lateral epicondyle of the left elbow. I then injected the area over the lateral epicondyle with a combination of 40 mg of dexamethasone and 1 mL of 1% lidocaine. The patient tolerated the procedure well with no complications. If the patient continues to experience symptoms over the next 4 weeks, they can make an appointment to return and discuss alternative treatment measures, such as physical therapy. Follow-up prn Orders: Orders XR elbow LT min 3V Today M25.522 - Pain in left elbow Coding Level of Care Code New Pt Level 3 (83062) Diagnoses Lateral epicondylitis of left elbow M77.12 CPT Codes Elbows, Wrist, Hands, - Elbow Injection Medium joint : Left Elbow ([id number])
== END 2024-07-29 15:42 | disposition home or self-care (01) ==
PROVIDERS: PCP Internal Medicine
DX: M77.12 Lateral epicondylitis, left elbow (principal)
CPT/HCPCS: 20550; 99203

== ENCOUNTER → 2024-07-29 14:39 | Outpatient (BNV) | payer OTHER, SELFPAY | PROVIDERS: Visit Provider Radiology Diagnostic Radiology | DX: M25.522 Pain in left elbow (principal) | CPT/HCPCS: 73080 ==

== ENCOUNTER 2025-02-28 14:50 | Outpatient (AMB) | payer OTHER, SELFPAY ==
--- OUTSIDE RECORDS SUMMARY | 2023-11-06 08:50 | XMS_ITS ---
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 Name Role Phone Bonilla Robertson MD Primary Care Provider Anshul Latham Unavailable [phone] REASON FOR VISIT gerd,screening Problems Problem Type SNOMED Code ICD Code Onset Dates Problem Status W/U Status Risk Notes Problem Diverticular disease of colon (707172560) Diverticulosis of large intestine without perforation or abscess without bleeding (K57.30) Active confirmed Problem Gastroesophageal reflux disease (842050683) Esophageal reflux disease (K21.9) Active confirmed Encounters Encounter Location Date Provider Diagnosis [facility] [place] [address] [place] [id number] 11/06/2023 Anshul Draper Encounter for scre ening [...] Notes * OZZY KINGB:1980 (45 yo M)Acc No.[id number]:11/06/2023 EGD and COL/MAC Patient: STEVE RENEE Provider: Josiane Draper MD :1980 A ge:43 Y S ex:Male Date:11/06/2023 Address:[address] [place] [address] , [id number] Pcp:Bonilla Robertson MD Subjective: * Chief Complaints: [...] 5380 COLONOSCOPY AND BIOPSY, Modifiers: 33 , 56594 UPPER GI ENDOSCOPY, BIOPSY * * The named appointment provid er may or may not be the originator of this progress note, and it is not deemed complete until electronically signed by the appointment provider. Sign off status: Pending * Provider: Josiane Draper MD Date: 0 11/06/2023 Generated for Yoselin garcia/Damon/eTransmitting on: 0 02/28/2025 05:30 PM EDT
--- NOTE | 2025-02-28 14:54 | MHC.PC.OV ---
Vital Signs 02/28/25 14:55 Height 5 ft 10 in Weight 266 lb 2 oz BMI 38.2 BP 122/72 Blood Pressure Location Lt brachial Position Sitting Pulse 70 Pulse Source Pulse Oximeter Pulse Oximetry (%) 98 Oxygen Delivery Method Room Air Intake Visit Reasons: JOSE ROBERTSON/annual exam Cook Jelly Required: No Accompanied by: Self / Same As Patient Allergies No Known Allergies Allergy (Verified 02/28/25 15:14) Medication List - Last Reconciled 02/28/25 by Katelyn Latif PA-C atorvastatin 20 mg PO BEDTIME 90 days Tobacco use date assessed: 02/27/24 Dental Screening Dental Screen Date: 02/28/25 Did you have a dental visit in the last 12 months?: Yes Did you have a dental problem in the last 6 months where you did not have access to dental care?: No Was dental information given to patient?: Patient has dentist HPI JOSE BEKA/annual exam HPI Details 45-year-old male with past medical history hyperlipidemia last seen 02/[address] Robertson coming in for transfer of care/annual exam. In review of the notes, patient was seen by Orthopedics to 04/07/2025 for lateral epicondylitis given injection advised to follow up as needed. Presenting with an annual wellness examination. Reports a history left knee giving out randomly, especially during increased activity in summer. Describes knee buckling due to possible meniscus slipping, with recommendations for physical therapy and muscle strengthening. Experiences seasonal allergies, with symptoms exacerbated in spring and fall, attributed to postnasal drip. Has a history of acid reflux, controlled by dietary modifications, though occasional symptoms persist. 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 PSA: Ordered today Vaccinations: Up-to-date Colonoscopy: 10/2023 Dr. Draper [facility] Medical History Hyperlipidemia Obesity Surgical History History of vasectomy History of removal of cyst Family History Father Medical history unknown Mother Medical history unknown Social History Housing: House Patient Tobacco Use Status: Never used Tobacco Tobacco use type: Cigarette e-Cigarette/Vaping Use: Never Used Second Hand Smoke Exposure: No service: No Current occupational status: employed Current occupation: [employer], rt handed Cognitive needs: No Hearing needs: No Vision needs: No Questionnaire PHQ-9 Over the last 2 weeks, how often have you been bothered by any of the following problems? 1. Little interest or pleasure in doing things: not at all 2. Feeling down, depressed, or hopeless: not at all 3. Trouble falling or staying asleep, or sleeping too much: not at all 4. Feeling tired or having little energy: more than half the days 5. Poor appetite or overeating: not at all 6. Feeling bad about yourself - or that you are a failure or have let yourself or your family down: not at all 7. Trouble concentrating on things, such as reading the newspaper or watching television: not at all 8. Moving or speaking so slowly that other people could have noticed. Or the opposite - being so fidgety or restless that you have been moving around a lot more than usual: not at all 9. Thoughts that you would be better off or of hurting yourself in some way: not at all Total score: 2 Depression Screening Interpretation: Negative Depression Screening Done: Yes 60289 - PHQ-9 Billing: Yes Source: Developed by Drs. Anshul Dutton, Heather Jimenez, Uche Hickey and colleagues, with an educational reji from [facility]. Thrive Questionnaire Date Thrive assessed: 02/28/25 I am a: Patient What is your living situation today?: I choose not to answer this question Within the past 12 months, did the food you bought not last and you didn't have the money to get more?: I choose not to answer this question Within the past 12 months, did you worry whether your food would run out before you got money to buy more?: I choose not to answer this question Do you have trouble paying for medicines?: I choose not to answer this question Do you have trouble getting transportation to medical appointments?: No Do you have trouble paying your heating and electricity bill?: I choose not to answer this question Do you have trouble taking care of your child, family member or friend?: I choose not to answer this question Do you have trouble with day-to-day activities such as bathing, preparing meals, shopping, managing finances, etc.?: I choose not to answer this question Are you currently unemployed and looking for a job?: I choose not to answer this question Are you interested in more education?: I choose not to answer this question Please select the resources that you would like help with: None Currently or been in a relationship where the following occur: I choose not to answer THRIVE Score: 0 AUDIT C Alcohol Use Questionnaire (AUDIT-C) 1. How often do you have a drink containing alcohol?: Monthly or less 2. How many drinks containing alcohol do you have on a typical day when you are drinking?: 1 or 2 3. How often do you have six or more drinks on one occasion?: Never Total Score: 1 XANDER-7 AMB Questionnaire XANDER-7 Date XANDER - 7 assessed: 02/28/25 Feeling nervous, anxious, or on edge: 0 = Not at all Not being able to stop or control worryin = Not at all Worrying too much about different things: 0 = Not at all Trouble relaxin = Not at all Being so restless that it is hard to sit still: 0 = Not at all Becoming easily annoyed or irritable: 0 = Not at all Feeling afraid as if something awful might happen: 0 = Not at all Total XANDER-7 score (0-4 normal; 5-9 mild; 10-14 moderate; 15-21 severe): 0 Source: Developed by Drs. Anshul Dutton, Heather Jimenez, Uche Hickey and colleagues, with an educational reji from [facility]. XANDER-7 Assessment Billing XANDER-7 Assessment Tool: XANDER-7 Assessment 88288 Review of Systems Const Denies body aches, Denies fatigue, Denies fever(s), Denies frequent falls, Denies headache(s) and Denies weakness Eyes Reports no additional complaints and Denies change in vision ENT Denies dysphagia, Denies dizziness, Denies facial pain, Denies headache(s), Denies nasal congestion and Denies odynophagia Card Denies chest pain, Denies syncope, Denies irregular heart rhythm, Denies leg edema, Denies lightheadedness and Denies dyspnea Resp Denies cough and Denies dyspnea GI Denies constipation, Denies dysphagia, Denies dyspepsia, Denies diarrhea, Denies nausea, Denies odynophagia and Denies vomiting Denies dysuria, Denies urinary frequency, Denies urinary hesitancy and Denies urinary urgency Musc Denies back pain and Denies myalgias Skin/Breast Reports system reviewed and no additional complaints, except as documented Neuro Denies dizziness, Denies syncope, Denies frequent falls, Denies headache(s) and Denies weakness Psych Reports no additional complaints Endo Denies fatigue Physical exam (Primary Care) Vital Signs: Last Vital Signs Pulse 70 02/28/25 14:55 BP 122/72 02/28/25 14:55 Pulse Ox 98 02/28/25 14:55 Oxygen Delivery Method Room Air 02/28/25 14:55 BMI result Body Mass Index 38.2 Tobacco/Smoking Status: Tobacco use Status Tobacco use date assessed 02/27/24 02/28/25 15:02 Patient Tobacco Use Status Never used Tobacco 02/28/25 15:02 Tobacco use type Cigarette 02/28/25 15:02 e-Cigarette/Vaping Use Never Used 02/28/25 15:02 PHQ-9: PHQ-9 Score PHQ-9: Total score 2 02/28/25 15:19 Depression Screening Interpretation: Negative Thrive Assessment: Date of Thrive Assessment Date Thrive assessed 02/28/25 02/28/25 15:02 Currently or been in a relationship where the following occur: I choose not to answer Const General: cooperative, healthy appearing, comfortable and no acute distress Orientation/consciousness: patient oriented x3 [facility] Head: Yes normocephalic Ears: hearing grossly normal bilaterally, external ears normal, TM's normal bilaterally and EAC's normal General nose exam: Normal external nose present Face and sinus: Yes normal facial exam and Yes sinuses nontender Mouth: Normal oral and palatal mucosa present and tongue normal Throat: Yes posterior oropharynx normal Eyes General: appearance normal, both eyes and all related structures Conjunctivae: conjunctivae normal Pupils: Equal, round and reactive pupils present EOM: EOMs intact bilaterally and No Nystagmus present Neck Neck: Yes normal visual inspection, Yes full ROM and Yes no lymphadenopathy Chest Chest palpation & inspection: normal inspection of the chest Resp Effort & Inspection: normal respiratory effort Auscultation: clear to auscultation bilaterally, no crackles, no rales, no rhonchi, no wheezes and breath sounds present Cardio Rate: regular rate Rhythm: regular rhythm Peripheral pulses: radial pulses present and dorsalis pedis present GI Inspection: Yes normal to inspection and No Abdominal wall edema Palpation (GI): Soft to palpation, not firm and nontender Auscultation: normal bowel sounds Rectal Exam - Male: Yes deferred General: Yes no CVA tenderness Back/Spine/Pelvis Back: no CVA tenderness Skin General skin exam: no rashes or lesions noted Neuro General: patient oriented x3 Cranial nerves: Yes Equal, round and reactive pupils present, Yes Midline tongue present, Yes Ability to bilaterally elevate shoulders present and No Nystagmus present Gait exam (Neuro): Normal gait present Extrem General: Yes normal to inspection, Yes full ROM, No no pedal edema and No edema Psych Speech and movement: Normal speech and movement present Affect: normal affect Insight: Good insight present (Psych) Judgement: Good judgement present (Psych) Coding Level of Care Code Est Pt Prev Care 40-64y(62761) Diagnoses Physical exam Z00.00 Hyperlipidemia E78.5 Obesity E66.9 Postnasal drip R09.82 GERD (gastroesophageal reflux disease) K21.9 Additional Codes XANDER-7 Assessment Billing - XANDER-7 Assessment Tool: XANDER-7 Assessment 06237 ([id number]) PHQ-9 - 26351 - PHQ-9 Billing: Yes ([id number]) Assessment & Plan Assessment & Plan (1) Physical exam: Code(s): Z00.00 - Encounter for general adult medical examination without abnormal findings Category: Medical (2) Hyperlipidemia: Code(s): E78.5 - Hyperlipidemia, unspecified Category: Medical Plan: Avoid foods that are high in cholesterol such as red meat, fried foods, eggs and baked goods. Triglyceride goal of less than 150 and LDL goal of less than 130. Continue on Atorvastatin (3) Obesity: Code(s): E66.9 - Obesity, unspecified Category: Medical Plan: Healthy diet and regular exercise is encouraged. (4) Postnasal drip: Code(s): R09.82 - Postnasal drip Category: Medical Plan: Recommend using Flonase during peak allergy season and may use [id number] antihistamine Adia or Zyrtec. (5) GERD (gastroesophageal reflux disease): Code(s): K21.9 - Gastro-esophageal reflux disease without esophagitis Category: Medical Plan: Avoid trigger foods such as citrus, tomato products, soda, caffeine, spicy foods and other foods that may be irritating to your stomach. Avoid laying flat 3-4 hours after eating and elevate the head of the bed 30 degrees to prevent acid from moving into the esophagus. Plan During the visit, we discussed the management of the patient's meniscus injury, emphasizing the importance of physical therapy and avoiding activities that could exacerbate the condition. We also reviewed the patient's seasonal allergies and recommended the use of Flonase nasal spray. For acid reflux, dietary modifications were advised, and the potential use of famotidine or omeprazole was considered if symptoms persisted. Follow-up was suggested based on blood work results, and the patient was advised to maintain regular health screenings and vaccinations. This note was constructed using voice recognition software. While every effort has been made to ensure accuracy and news agent, still areas may have been included sometimes these areas may affect the content or meeting of the given symptoms. Total time spent caring for the patient today was 30 minutes. This includes time spent before the visit reviewing the chart, time spent during the visit, and time spent after the visit and documentation. Patient was informed and verbally consented to the use of an ambient scribe for clinic note documentation during this visit. Orders: Orders Lipid Panel Today E78.00 - Pure hypercholesterolemia, unspecified Hemoglobin A1c Today Z13.1 - Encounter for screening for diabetes mellitus PSA, Ultra Sensitive Today Z12.5 - Encounter for screening for malignant neoplasm of prostate TSH reflex Free T4 Today Z13.29 - Encounter for screening for other suspected endocrine disorder Vitamin B12 and Folate Today Z13.21 - Encounter for screening for nutritional disorder Vitamin D 25-OH Total Today Z13.21 - Encounter for screening for nutritional disorder Complete Blood Count Auto Diff Today E66.9 - Obesity, unspecified, Z00.00 - Encounter for general adult medical examination without abnormal findings Comprehensive Met. Panel Today E66.9 - Obesity, unspecified, Z00.00 - Encounter for general adult medical examination without abnormal findings
[2025-02-28 14:55] VITALS: BP 122/72; PULSE 70; O2SAT 98; BMI 38.2
--- OUTSIDE RECORDS SUMMARY | 2025-02-28 17:31 | XMS_ITS | Patient Health Record ---
Author Organization [facility] Demi Shah Address [address] [place] [address] Care Team Providers Care Plumber'S Helper Name Role Phone Bonilla Robertson MD Primary Care Provider UnavailRicki Wynn Unavailable [phone] Reason For Referral No Information Medications Medication SIG (Take, Route, Frequency, Duration) Notes Start Date End Date Status Atorvastatin Calcium 20 MG 1 tablet Oral ly Once a day Active ASO Ankle/Foot Stablizing AFO As directed Wear Daily; Duration: as needed 04/03/2018 Active Ibuprofen 800 MG 1 tablet Orally Thre e times a day; Duration: 14 days 05/02/2018 Active Social History Alcohol Screen Question Answer Notes Did you have a drink contain ing alcohol in the past year? Yes Points 1 Interpretation Negative How often did you have 6 or more drinks on one occasion in the past year? Never (0 point) How many drinks did you have on a typical day when you were drinking in the past year? 1 or 2 drinks (0 point) How often did you have a dri nk containing alcohol in the past year? Monthly or less (1 point) Problems No Known Problems Plan Of Treatment Pending Test Test Name Order Date X ray : Foot, left 3V 04/03/2018 X ray : Foot, left 3V 05/02/2018 Insurance Providers Payer Name Payer Address Payer Phone Subscriber Number Group Number Insured Name Patient Relationship to Insured Coverage Start Date Coverage End Date [facility] [address] [place] [address] [phone] [id number] Leon De La Vega Self - patient is the insured Medical (General) History Surgical History Surgery Date(Month/Year)
--- OUTSIDE RECORDS SUMMARY | 2025-02-28 17:31 | XMS_ITS | Patient Health Record ---
Author Organization [facility] Address [address] [place] [address] Care Team Providers Care Contract Admin Name Role Phone Bonilla Robertson MD Primary Care Provider Anshul Latham Unavailable [phone] Allergies No Known Allergies Reason For Referral No Information Medications Medication SIG (Take, Route, Frequency, Duration) Notes Start Date End Date Status Atorvastatin Calcium 20 MG TAKE 1 TABLET BY MOUTH EVERYDAY AT BEDTIME Oral for 90 Active Immunizations Vaccine Route Administration Date Status Comme nts Influenza Unknown 08/16/2023 Refused Social History Tobacco Use: Social History Observation Description Date Details (start date - stop date) Never Smoker NA - NA Tobacco Use/Smoking Question Answer Notes Patient is [...] Never (0 point) Points 3 Interpretation Negative Section Notes: Occ alcohol, nonsmoker Problems Problem Type SNOMED Code ICD Code Onset Dates Problem Status W/U Status Risk Notes Problem Colon cancer screening (342616127) Colon cancer screening (Z12.11) Active confirmed Problem Diverticular disease of colon (191776407) Diverticulosis of large intestine without perforation or abscess without bleeding (K57.30) Active confirmed Problem Gastroesophageal reflux disease (079588885) GERD (gastroesophageal reflux disease) (K21.9) Active confirmed Problem Gastroesophageal reflux disease (988884439) Esophageal reflux disease (K21.9) Active confirmed Plan Of Treatment Future Test Test Name Order Date UPPER GI ENDOSCOPY 08/16/2023 COLONOSCOPY 08/16/2023 Insurance Providers Payer Name Payer Address Payer Phone Subscriber Number Group Number Insured Name Patient Relationship to Insured Coverage Start Date Coverage End Date [facility] [address] [facility] [place] [phone] [id number] STEVE KING Self - patient is the insured Medical (General) History Medical History History ICD Code Hyperlipidemia Denies [place],DM,CVA,Lung disease,renal dise ase Surgical History Surgery Date(Month/Year) Pilonidal cyst Vasectomy
== END 2025-02-28 15:40 | disposition home or self-care (01) ==
LOC: HO.HMCH 14:51
DX: Z00.00 Encounter for general adult medical examination without abnormal findings (principal); E78.5 Hyperlipidemia, unspecified; Z68.38 Body mass index [BMI] 38.0-38.9, adult; E66.9 Obesity, unspecified; R09.82 Postnasal drip; K21.9 Gastro-esophageal reflux disease without esophagitis

== ENCOUNTER → 2025-02-28 14:50 | Outpatient (BNVA) | payer OTHER, SELFPAY | DX: Z00.00 Encounter for general adult medical examination without abnormal findings (principal); E78.00 Pure hypercholesterolemia, unspecified; R09.82 Postnasal drip; K21.9 Gastro-esophageal reflux disease without esophagitis; E66.9 Obesity, unspecified; M25.362 Other instability, left knee; Z68.38 Body mass index [BMI] 38.0-38.9, adult | CPT/HCPCS: 96127 ==

== ENCOUNTER 2025-04-02 13:35 | Outpatient (REF) | payer OTHER, SELFPAY ==
--- OUTSIDE RECORDS SUMMARY | 2023-11-06 08:50 | XMS_ITS ---
Author Organization [facility] Address [address] [place] [address] Care Team Providers Care Borough Coordinator Name Role Phone Bonilla Robertson MD Primary Care Provider Anshul Latham Unavailable [phone] REASON FOR VISIT gerd,screening Problems Problem Type SNOMED Code ICD Code Onset Dates Problem Status W/U Status Risk Notes Problem Diverticular disease of colon (510031232) Diverticulosis of large intestine without perforation or abscess without bleeding (K57.30) Active confirmed Problem Gastroesophageal reflux disease (987584748) Esophageal reflux disease (K21.9) Active confirmed Encounters Encounter Location Date Provider Diagnosis [facility] [place] [address] [place] [id number] 11/06/2023 Anshul Draper Encounter for scre ening colonoscopy Z12.11 ; Rectal polyp K62.1 ; Diverticulosis of large intestine without perforation or abscess without bleeding K57.30 ; Other hemorrhoids K64.8 ; Other specified disease of esophagus K22.89 ; Hiatal hernia K44.9 and Esophageal reflux disease K21.9 Assessments Encounter Date Diagnosis (ICD Code) Assessment Notes Treatment Notes Treatment Clinical Notes Section Notes 11/06/2023 Encounter for screening colonoscopy (ICD-10 - Z12.11) 11/06/2023 Rectal polyp (ICD-10 - K62.1) 11/06/2023 Diverticulosis of large intestine without perforation or abscess without bleeding (ICD-10 - K57.30) 11/06/2023 Other hemorrhoids (ICD-10 - K64.8) 11/06/2023 Other specified disease of esophagus (ICD-10 - K22.89) 11/06/2023 Hiatal hernia (ICD-10 - K44.9) 11/06/2023 Esophageal reflux disease (ICD-10 - K21.9) Plan Of Treatment No Information Progress Notes * OZZY KINGB:1980 (45 yo M)Acc No.[id number]:11/06/2023 EGD and COL/MAC Patient: STEVE RENEE Provider: Josiane Draper MD :1980 A ge:43 Y S ex:Male Date:11/06/2023 Address:[address] [place] [address] , [id number] Pcp:Bonilla Robertson MD Subjective: * Chief Complaints: * 1 . Gerd,screening. * Medical History: Objective: * Vitals: Assessment: * Assessment: 1. E ncounter for screening colonoscopy - Z12.11 (Primary) 2 . R ectal polyp - K62.1 3 . D iverticulosis of large intestine without perforation or abscess without bleeding - K57.30 4 . O ther hemorrhoids - K64.8 5 . Other specified disease of esophagus - K22.89 6 . H iatal hernia - K44.9 ? 7 . E sophageal reflux disease - K21.9 Plan: * Treatment: * Procedure Codes: 4 5380 COLONOSCOPY AND BIOPSY, Modifiers: 33 , 62160 UPPER GI ENDOSCOPY, BIOPSY * * The named appointment provid er may or may not be the originator of this progress note, and it is not deemed complete until electronically signed by the appointment provider. Sign off status: Pending * Provider: Josiane Draper MD Date: 0 11/06/2023 Generated for Yoselin garcia/Damon/eTransmitting on: 1 05:22 PM EDT
[2025-04-02 16:15] LABS: MANUAL DIFF FLAG NO
[2025-04-02 16:20] LABS: Hematocrit 45.9 % (42.0-52.0); Hemoglobin 15.0 g/dl (14.0-18.0); Imm Gran Abs Auto 0.01 X10*3/uL (0.00-0.03); Imm Gran Pct Auto 0.2 % (0.0-0.4); Lymphocytes Absolute Auto 1.7 X10*3/uL (1.2-4.9); Mean Corpuscular HGB Conc 32.7 g/dl (31.0-36.0); Mean Corpuscular Hemoglobin 28.5 pg (27.0-33.0); Mean Corpuscular Volume 87.3 fL (80.0-98.0); NRBC Abs Auto 0.000 X10*3/uL (0.0-0.012); NRBC Pct Auto 0.0 /100WBC (0.0-0.2); Platelet Count 259 X10*3/uL (160-400); Red Blood Count 5.26 X10*6/uL (4.60-5.80); White Blood Count 5.5 X10*3/uL (4.8-10.8)
[2025-04-02 16:38] LABS: Alanine Aminotransferase 35 U/L (0-40); Albumin Level 4.6 g/dL (3.5-5.0); Alkaline Phosphatase 65 U/L (39-117); Anion Gap 11 (12-20); Aspartate Amino Transferase 31 U/L (5-37); Blood Urea Nitrogen 16 mg/dL (9-16); Calcium 9.3 mg/dL (8.4-10.2); Carbon Dioxide 27 mmol/L (22-29); Chloride 107 mmol/L (96-108); Cholesterol 225 mg/dL (<200); Estimated Glomerular Filt Rate > 60; HDL Cholesterol 53 mg/dL (>40); Potassium 4.0 mmol/L (3.3-5.1); Sodium 141 mmol/L (135-145); Total Protein 7.5 g/dL (6.5-8.0); Triglycerides 209 mg/dL (<150)
[2025-04-02 17:05] LABS: Folate 15.9 ng/mL (> or = 4.0); Vitamin B12 499 pg/mL (200-900)
--- OUTSIDE RECORDS SUMMARY | 2025-04-02 17:22 | XMS_ITS | Patient Health Record ---
Author Organization [facility] Demi Shah Address [address] [place] [address] Care Team Providers Care Pot Tender Name Role Phone Bonilla Robertson MD Primary Care Provider UnavailRicki Wynn Unavailable [phone] Reason For Referral No Information Medications Medication [...] Insured Coverage Start Date Coverage End Date [facility] [address] [place] [address] [phone] [id number] Leon De La Vega Self - patient is the insured Medical (General) History Surgical History Surgery Date(Month/Year)
--- OUTSIDE RECORDS SUMMARY | 2025-04-02 17:23 | XMS_ITS | Patient Health Record ---
Author Organization [facility] Address [address] [place] [address] Care Team Providers Care Consulting Project Director Name Role Phone Bonilla Robertson MD Primary Care Provider Anshul Latham Unavailable [phone] Allergies No Known Allergies Reason For Referral No Information Medications Medication SIG (Take, Route, Frequency, Duration) Notes Start Date End Date Status Atorvastatin Calcium 20 MG TAKE 1 TABLET BY MOUTH EVERYDAY AT BEDTIME Oral; Duration: 90 Active Immunizations Vaccine Route Administration Date [...] Status Risk Notes Problem Colon cancer screening (666506680) Colon cancer screening (Z12.11) Active confirmed Problem Diverticular disease of colon (890168101) Diverticulosis of large intestine without perforation or abscess without bleeding (K57.30) Active confirmed Problem Gastroesophageal reflux disease (787179442) GERD (gastroesophageal reflux disease) (K21.9) Active confirmed Problem Gastroesophageal reflux disease (978987210) Esophageal reflux disease (K21.9) Active confirmed Plan Of Treatment Future Test Test Name Order Date UPPER GI ENDOSCOPY 08/16/2023 COLONOSCOPY 08/16/2023 Insurance Providers Payer Name Payer Address Payer Phone Subscriber Number Group Number Insured Name Patient Relationship to Insured Coverage Start Date Coverage End Date [facility] [address] [place] [phone] [id number] STEVE KING Self - patient is the insured Medical (General) History Medical History History ICD Code Hyperlipidemia Denies [place],DM,CVA,Lung disease,renal dise ase Surgical History Surgery Date(Month/Year) Pilonidal cyst Vasectomy
[2025-04-06 15:32] LABS: PSA, Ultra Sensitive 0.29 ng/mL
== END 2025-04-02 13:36 | disposition home or self-care (01) ==
LOC: HO.HMGCLDS 13:35
DX: Z00.00 Encounter for general adult medical examination without abnormal findings (principal); Z12.5 Encounter for screening for malignant neoplasm of prostate; Z13.1 Encounter for screening for diabetes mellitus; Z13.29 Encounter for screening for other suspected endocrine disorder; Z13.21 Encounter for screening for nutritional disorder; E66.9 Obesity, unspecified; E78.00 Pure hypercholesterolemia, unspecified
CPT/HCPCS: 36415; 80053; 80061; 82306; 82607; 82746; 83036; 84153; 84443; 85025